=== PATIENT | male | born 1965 | race African-American/Black ===

== ENCOUNTER 2017-09-12 01:53 | Emergency (ER) | payer BC ==
[2017-09-12] MEDS: SOD CHLORIDE 0.9% 1,000 ML IV (03:24)
[2017-09-12] MEDS: HYDROmorphONE 1 MG/ML SYG IV ×2 (03:24→05:40)
[2017-09-12] MEDS ORDERED: LORAZEPAM 2 MG INJ (03:24)
[2017-09-12] MEDS: DIPHTH/TET/ACEL PERTUSS (ADULT) 0.5 ML VIAL IM* (03:26)
[2017-09-12] MEDS: LORAZEPAM 2 MG INJ IV (03:27)
[2017-09-12] MEDS: LIDOCAINE 2% 20 ML UROJET SYRINGE MM (03:28)
[2017-09-12 04:58] LABS: ADD MAN DIFF? NO
[2017-09-12 04:59] LABS: ABNORMAL IP MESSAGE 1; BASOPHILS % 0.5 % (0.0-2.0); EOSINOPHILS % 0.2 % (0.0-7.0); HEMATOCRIT 42.4 % (42.0-52.0); HEMOGLOBIN 14.2 g/dl (14.0-18.0); LYMPHOCYTES # 0.5 10^3/ul (0.8-2.9); LYMPHOCYTES % 7.5 % (15.0-51.0); MEAN CORPUSCULAR HEMOGLOBIN 28.6 pg (29.0-33.0); MEAN CORPUSCULAR HGB CONC 33.5 g/dl (32.0-37.0); MEAN CORPUSCULAR VOLUME 85.3 fl (82.0-101.0); MEAN PLATELET VOLUME 12.8 fl (7.4-10.4); MONOCYTE # 0.8 10^3/ul (0.3-0.9); MONOCYTES % 12.8 % (0.0-11.0); NEUTROPHIL # 4.7 10^3/ul (1.6-7.5); NEUTROPHILS % 78.7 % (39.0-77.0); PLATELET COUNT 125 10^3/UL (140-415); POSITIVE DIFF @See below; RED BLOOD COUNT 4.97 10^6/ul (4.70-6.10); RED CELL DISTRIBUTION WIDTH 13.1 % (11.5-14.5)
[2017-09-12 05:16] LABS: ANION GAP 13 (8-16); BLOOD UREA NITROGEN 14 mg/dl (7-20); CALCIUM 8.1 mg/dl (8.4-10.2); CARBON DIOXIDE 29 mmol/L (21-31); CHLORIDE 103 mmol/L (97-110); CREATININE 0.96 mg/dl (0.61-1.24); GLUCOSE 136 mg/dl (70-220); POTASSIUM 3.4 mmol/L (3.5-5.1); SODIUM 142 mmol/L (135-144)
[2017-09-12] MEDS: POTASSIUM CHLORIDE (SR) 20 MEQ TAB PO (05:40)
[2017-09-12] MEDS ORDERED: SOD CHLORIDE 0.9% 1,000 ML IV (06:30)
[2017-09-12] MEDS ORDERED: LABETALOL HCL 20MG INJ IV (06:30)
== END 2017-09-12 06:43 | disposition short-term general hospital (02) ==
LOC: E/R 01:53
DX: T21.22XA Burn of second degree of abdominal wall, initial encounter (principal); T21.26XA Burn of second degree of male genital region, initial encounter; T24.211A Burn of second degree of right thigh, initial encounter; T24.212A Burn of second degree of left thigh, initial encounter; I10 Essential (primary) hypertension; X11.8XXA Contact with other hot tap-water, initial encounter; Z23 Encounter for immunization
CPT/HCPCS: 51702; 80048; 85025; 90471; 90715; 96374; 96375; 96376; 99285-25